=== PATIENT | female | born 1955 | race Caucasian/White ===

== ENCOUNTER → 2021-10-26 | Outpatient (CLI) | payer MEDICARE ==
--- NOTE | 2021-10-27 15:12 | KCIC ---
EXAM: MRI Right ANKLE/HINDFOOT DATE: 10/26/2021 9:30 AM CLINICAL INDICATION: Reason: RIGHT FOOT PAIN / Spl. Instructions: / History: NKI. Two weeks of rt fo ot pain across the top od foot and around lat ankle. COMPARISON: None. TECHNIQUE: Multiplanar, multisequence MR imaging of the left hindfoot/midfoot was performed without I V contrast. FINDINGS: No ankle or subtalar joint effusion. Large gyhzm-ca-ntar evaluation limits evaluation of the ankle. Within these constraints: Mild peroneus longus and brevis tendinosis beyond the lateral malleolus. The medial flexor tendons an d extensor tendons of the ankle are intact. Visualized Achilles tendon is intact. Thickening of the central band plantar fascia with mild associated soft tissue and trace calcaneal ed marcelo may be seen with plantar fasciitis. Marked fatty atrophy of the abductor digiti minimi muscle bel ly. Ligaments: The lateral, syndesmotic and medial ankle ligaments are grossly intact. Spaces/Places: Mild edema within the sinus tarsi. Moderate marrow edema within the anterior process of the calcaneus and cuboid. Tarsal tunnel within normal limits, without mass lesion. Articular Cartilage/joint line: Moderate navicular-medial cuneiform degenerative change with subchondral edema and cystic change. Calcaneal cuboid degenerative changes are seen with proliferative change and chondral thinning. Ankle joint degenerative change with intermittent chondral thinning/fissuring with trace tibial and t alar subchondral edema/cystic change. No acute fracture or osteonecrosis. 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 Severe fatty atrophy of the abductor digiti minimi Soft tissue edema at the dorsal and lateral aspect of the midfoot. Peroneus longus and brevis tendinosis just beyond the lateral malleolus without discrete tear. Electronically signed by: Karthikeyan Carroll MD (10/27/2021 3:09 PM) [facility]
== END ==
LOC: KCIC MRI 09:13
PROVIDERS: ATTEND Physician Assistant
DX: M19.071 Primary osteoarthritis, right ankle and foot (principal); R60.9 Edema, unspecified; M79.671 Pain in right foot; M77.51 Other enthesopathy of right foot and ankle
CPT/HCPCS: 73718